=== PATIENT | female | born 1980 ===

== ENCOUNTER → 2017-05-07 | Emergency (ER) | payer OTHER ==
[~2017-05-07] VITALS: Ht 165.1 cm; Wt 86.2 kg
== END | disposition home or self-care (01) ==
LOC: ER 10:02
DX: B34.9 Viral infection, unspecified (principal)

== ENCOUNTER 2020-08-12 15:43 | Emergency (ER) | payer OTHER ==
[~2020-08-12] VITALS: Ht 165.1 cm; Wt 89.8 kg
== END 2020-08-12 21:51 | disposition home or self-care (01) ==
LOC: ER 15:43
DX: J02.8 Acute pharyngitis due to other specified organisms (principal); B34.9 Viral infection, unspecified

== ENCOUNTER 2021-04-26 12:26 | Emergency (ER) | payer OTHER ==
[~2021-04-26] VITALS: Ht 165.1 cm; Wt 88.5 kg
== END 2021-04-26 17:07 | disposition home or self-care (01) ==
LOC: ER 12:26
DX: B34.9 Viral infection, unspecified (principal)

== ENCOUNTER 2021-05-02 10:30 | Outpatient (CLI) | payer OTHER | END 2021-05-02 11:00 | disposition home or self-care (01) | LOC: ASH CLINIC 10:30 | PROVIDERS: ATTEND General Practice | DX: U07.1 COVID-19 (principal); Z23 Encounter for immunization ==